=== PATIENT | female | born 1965 | race African-American/Black ===

== ENCOUNTER 2020-08-05 08:38 | Emergency (ER) | payer OTHER, SELFPAY ==
--- NOTE | ~2020-08-05 | XR_ITS ---
EXAMINATION: XR chest 2V EXAM DATE: 08/05/2020 09:44 INDICATION: Syncope. Anemia, weakness. TECHNIQUE: Frontal and lateral projections of the chest obtained and reviewed. There is no prior uzma dy for comparison. FINDINGS: The lungs are clear. There are no pleural effusions. The cardiomediastinal silhouette is within normal limits. There is no pneumothorax suspected. The bones and soft tissues are unremarkab le. IMPRESSION: No acute cardiopulmonary findings. Reviewed, dictated and finalized at location B. N SPECIALIST
--- NOTE | 2020-08-05 08:45 | ECG_ITS ---
Measurements Intervals [place] Rate: 74 P: 44 TN: 159 QRS: 36 QRSD: 84 T: -6 QT: 374 QTc: 415 Interpretive Statements SINUS RHYTHM EARLY PRECORDIAL R/S TRANSITION BORDERLINE ST-T WAVE ABNORMALITY- ANT/INF LEADS BORDERLINE ECG Electronically Signed On 08-05-2020 9:19:00 EMBROIDERY MACHINE OPERATOR by Jim Claudio D.O.
[2020-08-05 09:17] VITALS: BP 173/93; PULSE 84; RESP 16; TEMP 36.3; O2SAT 98
--- NOTE | 2020-08-05 09:35 | ED.SYNCOPE ---
HPI - Syncope General Chief Complaint: Syncope Stated Complaint: fainted yesterday Time Seen by Provider: 08/05/20 09:12 Source: patient Mode of arrival: ambulatory Limitations: no limitations History of Present Illness HPI narrative: This is a 55-year-old female that presents to the emergency department for syncopal episode yesterday. Reports she was at the grocery store yesterday. She had been feeling kind of nauseous that morning. Reports while she was walking around she started to feel very lightheaded. Reports next thing she knew she was passed out on the floor. She was not evaluated yesterday. Reports she was urged by family members to be evaluated today. Denies any current symptoms. Does report she has history of anemia and has had similar episodes in the past when her blood counts are low. Denies fever, chest pain, palpitations, or shortness of breath. Review of Systems Review of Systems: Narrative: CONSTITUTIONAL: Denies fever CARDIOVASCULAR: Denies chest pain, palpitations RESPIRATORY: Denies cough or dyspnea. GASTROINTESTINAL: Denies abdominal pain, nausea, vomiting GENITOURINARY: Denies dysuria All systems reviewed & are unremarkable except as noted in HPI and below PMFSH Past Medical History Medical History (Updated 08/05/20 @ 11:38 by Brandee Giang PA-C) History of anemia Surgical History Surgical History (Updated 08/05/20 @ 09:37 by Brandee Giang PA-C) History of tubal ligation Exam Narrative: Exam Narrative: GENERAL: Well-appearing, well-nourished, and in no acute distress. HEAD: Normocephalic, atraumatic. EYES: EOMI. ENT: Mucous membranes moist. Oropharynx without tonsillar hypertrophy exudate or other lesions. NECK: Supple. No adenopathy or masses. No carotid bruits or JVD CHEST: Clear to auscultation. No respiratory distress. No wheezes rales or rhonchi HEART: Regular rate and rhythm. No murmur heard. Normal peripheral pulses. EXTREMITIES: Normal range of motion. No edema. SKIN: Warm, dry, no rash. NEURO: No focal deficits. Alert and oriented x3. PSYCH: Normal mood and affect Course Vital Signs Vital signs: Vital Signs Temperature 97.3 F L 08/05/20 09:17 Pulse Rate 84 08/05/20 09:17 Respiratory Rate 16 08/05/20 09:17 Blood Pressure 173/93 H 08/05/20 09:17 Pulse Oximetry 98 08/05/20 09:17 Temperature 97.3 F L 08/05/20 09:17 Pulse Rate 70 08/05/20 10:46 Respiratory Rate 18 08/05/20 10:46 Blood Pressure 163/90 H 08/05/20 10:46 Pulse Oximetry 99 08/05/20 10:46 MDM - Syncope MDM Narrative Medical decision making narrative: Patient presents the emergency department for syncopal episode yesterday. Had prodromal lightheadedness. Denied any chest pain or palpitations. She is not orthostatic. CBC and metabolic panel without concerning findings. EKG without concerning changes. Baseline troponin is negative. Chest x-ray without acute findings. Gonzales syncope score makes her very low risk. Patient is stable and felt appropriate for the outpatient evaluation. She was given warnings to return to the ER Lab Data Attestation: I reviewed the patient's lab results. Result diagrams: 08/05/20 09:35 08/05/20 09:35 Labs: Lab Results 08/05/20 08/05/20 08/05/20 Range/Units 09:35 09:35 09:35 WBC 6.9 (4.5-10.0) K/mm3 RBC 4.18 L (4.2-5.4) M/mm3 Hgb 12.9 (12.0-15.0) g/dL Hct 38.4 (37.0-47.0) % MCV 91.9 (80-100) fl MCH 30.9 (26-34) pg MCHC 33.6 (32-36) g/dl RDW 13.2 (11.5-14.5) % Plt Count 370 (150-375) k/mm3 MPV 9.5 (7.4-10.4) fl Immature Gran % (Auto) 0.3 (0-0.5) % Neut % (Auto) 49.8 (45.5-73.1) % Lymph % (Auto) 42.2 (18.3-44.2) % Knott % (Auto) 5.8 (2.6-8.5) % Eos % (Auto) 1.6 (0-4.4) % Baso % (Auto) 0.3 (0.2-1.2) % Lymph # (Auto) 2.89 (0.9-3.2) K/mm3 Knott # (Auto) 0.4 (0.1-0.6) K/mm3 Eos # (Auto) 0.1 (0-0.3) K/mm3 Baso # (Auto
[2020-08-05 09:45] LABS: Basophils Percent Auto 0.3 % (0.2-1.2); Eosinophils Absolute Auto 0.1 K/mm3 (0-0.3); Eosinophils Percent Auto 1.6 % (0-4.4); Hematocrit 38.4 % (37.0-47.0); Hemoglobin 12.9 g/dL (12.0-15.0); Immature Granulocyte Absolute 0.02 K/mm3 (0.00-0.031); Immature Granulocyte Percent A 0.3 % (0-0.5); Lymphocytes Absolute Auto 2.89 K/mm3 (0.9-3.2); Lymphocytes Percent Auto 42.2 % (18.3-44.2); Mean Corpuscular HGB Conc 33.6 g/dl (32-36); Mean Corpuscular Hemoglobin 30.9 pg (26-34); Mean Corpuscular Volume 91.9 fl (80-100); Mean Platelet Volume 9.5 fl (7.4-10.4); Monocytes Absolute Auto 0.4 K/mm3 (0.1-0.6); Monocytes Percent Auto 5.8 % (2.6-8.5); Neutrophils Absolute Auto 3.4 K/mm3 (1.3-6.7); Neutrophils Percent Auto 49.8 % (45.5-73.1); Platelet Count Result 370 k/mm3 (150-375); Red Blood Count 4.18 M/mm3 (4.2-5.4); Red Cell Distribution Width 13.2 % (11.5-14.5); White Blood Count 6.9 K/mm3 (4.5-10.0)
[2020-08-05 09:58] LABS: Anion Gap 8 mmol/L (8-16); Blood Urea Nitrogen 12 mg/dL (7-17); Calcium 9.7 mg/dL (8.4-10.2); Carbon Dioxide 27 mmol/L (22-30); Chloride 105 mmol/L (98-107); Estimated CRCL calculation 52 ml/min; Estimated Glomerular Filt Rate > 60; Glucose 104 mg/dL (65-105); Potassium 4.2 mmol/L (3.4-5.0); Sodium 140 mmol/L (137-145)
[2020-08-05 10:24] LABS: Troponin I < 0.012 ng/mL (0.000-0.034)
[2020-08-05 10:31] VITALS: BP 152/82; BP 153/93; PULSE 75; PULSE 76
[2020-08-05 10:33] VITALS: BP 165/90; PULSE 76
[2020-08-05 10:46] VITALS: BP 163/90; PULSE 70; RESP 18; O2SAT 99
[2020-08-05 11:45] VITALS: BP 132/76; PULSE 78; RESP 18; O2SAT 99
== END 2020-08-05 11:47 | disposition home or self-care (01) ==
PROVIDERS: Physician Assistant; Emergency Provider Emergency Medicine
DX: R55 Syncope and collapse (principal); Z86.2 Personal history of diseases of the blood and blood-forming organs and certain disorders involving the immune mechanism; R94.31 Abnormal electrocardiogram [ECG] [EKG]
CPT/HCPCS: 36415; 71046; 80048; 81025; 84484; 85025; 93005; 99284

== ENCOUNTER 2021-03-30 11:41 | Emergency (ER) | payer OTHER, SELFPAY ==
[2021-03-30 11:55] VITALS: BP 149/78; PULSE 74; RESP 20; TEMP 36.7; O2SAT 100
--- NOTE | 2021-03-30 12:30 | PC.NURSE ---
PT REPORTED TO STAFF THAT SHE NEEDED TO LEAVE TO TAKE A CLIENT TO AN APPOINTMENT.
[2021-03-30 15:09] VITALS: BP 164/83; PULSE 75; RESP 20
== END 2021-03-30 16:22 | disposition home or self-care (01) ==
PROVIDERS: Emergency Provider Registered Nurse
DX: Z53.21 Procedure and treatment not carried out due to patient leaving prior to being seen by health care provider (principal)
CPT/HCPCS: 99199

== ENCOUNTER 2022-11-15 09:04 | Emergency (ER) | payer SELFPAY ==
[2022-11-15 09:15] VITALS: BP 156/89; PULSE 96; RESP 16; TEMP 36.6; O2SAT 99
--- NOTE | 2022-11-15 09:16 | ED.ARRPALP ---
HPI - Arrhythmia/Palpitations General Stated Complaint: Heart Rate Problem Time Seen by Provider: 11/15/22 09:16 Source: patient and RN notes reviewed History of Present Illness HPI narrative: Patient is a 57-year-old female who presents to urgent care with complaints of possibility of palpitations. Patient states that her watch his told her a couple different times, in the last 2 weeks, that she may be having an arrhythmia. Patient states she may have felt some abnormal heart rate earlier today whenever it told her her heart rate was 137. However, patient has no cardiac history or medical history. The patient does not drink caffeine nor involve herself and strenuous activity. 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 Patient denies any chest discomfort, shortness of breath, nausea or vomiting. Patient currently has no medical or acute complaints. No acute distress noted. Patient aware of the plan of care. Some parts of this dictation were generated by voice recognition software and may contain typographical and/or grammatical inaccuracies. Related Data Home Medications Medication Instructions Recorded Confirmed No Home Medications 11/15/22 11/15/22 Allergies Allergy/AdvReac Type Severity Reaction Status Date / Time No Known Allergies Allergy Verified 11/15/22 09:41 Review of Systems Review of Systems: CONSTITUTIONAL: Denies fever, chills, or sweats. EYES: Denies visual changes, redness, or discharge. ENT: Denies rhinorrhea, congestion, sore throat, or otalgia. CARDIOVASCULAR: Denies chest pain; reports inability palpitations RESPIRATORY: Denies cough or dyspnea. GASTROINTESTINAL: Denies abdominal pain, nausea, vomiting, or diarrhea. GENITOURINARY: Denies dysuria or hematuria. SKIN: Denies rash or itching. MUSCULOSKELETAL: Denies back pain, joint pain, or myalgia. NEUROLOGIC: Denies headache, numbness, or weakness. All other systems reviewed are negative, except as documented in HPI. [facility] Past Medical History Medical History History of anemia Surgical History Surgical History History of tubal ligation Social History Social History (Updated 04/04/21 @ 22:26 by Nalini L. Rafael, METAL CASTING TRADES WORKER) Smoking status: Never smoker Alcohol intake: never Substance use: never Living arrangements: with family Gender identity (if verbalized by the patient): Female Comments At the time of my signature, I reviewed and agree with the nursing past medical, surgical, social, and family history. There is no relevant family history pertinent to the patient complaint. Exam Narrative: GENERAL: This is a well-nourished, well-developed patient, in no apparent distress. HEAD: normocephalic, atraumatic. EYES: PERRL. Sclera clear/white. Vision is grossly intact. EARS: External ears normal NOSE: External nose normal with no obvious nasal discharge, nares without redness, no rhinorrhea. THROAT: Mucous membranes moist NECK: Neck supple CARDIOVASCULAR: Regular rate and rhythm without murmurs-auscultated for at least 1 full minute RESPIRATORY: Clear to auscultation. Breath sounds equal bilaterally. No wheezes, rales, or rhonchi. SKIN: warm, intact with no suspicious lesions or rash, good texture and turgor. NEURO: awake, alert, and oriented to person, place and time. There were no obvious focal neurologic abnormalities. EXTREMITIES: No clubbing, cyanosis, or edema. Course Course Level of Care: Express Care Visit Vital Signs Vital signs: Vital Signs Temperature 98 F 11/15/22 09:15 Pulse Rate 96 11/15/22 09:15 Respiratory Rate 16 11/15/22 09:15 Blood Pressure 156/89 H 11/15/22 09:15 Pulse Oximetry 99 11/15/22 09:15 Oxygen Delivery Room Air 11/15/22 09:15 Temperature 98 F 11/15/22 09:15 Pulse Rate 96 11/15/22 09:15 Respiratory Rate 16
--- NOTE | 2022-11-15 09:17 | ECG_ITS ---
Measurements Intervals [place] Rate: 88 P: 39 KS: 153 QRS: 39 QRSD: 79 T: 48 QT: 360 QTc: 436 Interpretive Statements SINUS RHYTHM NONSPECIFIC T-WAVE ABNORMALITY ABNORMAL ECG COMPARED TO ECG 08/05/2020 09:17:44 T-WAVE ABNORMALITY NOW PRESENT Electronically Signed On 11-15-2022 14:41:44 CDT by Kristopher Mcdaniel M.D.
== END 2022-11-15 09:55 | disposition home or self-care (01) ==
PROVIDERS: Emergency Provider Nurse Practitioner Family
DX: Z71.1 Person with feared health complaint in whom no diagnosis is made (principal); R94.31 Abnormal electrocardiogram [ECG] [EKG]
CPT/HCPCS: 93005; 99213; G0463

== ENCOUNTER 2024-08-31 09:20 | Emergency (ER) | payer BC, SELFPAY ==
--- OUTSIDE RECORDS SUMMARY | 2024-08-31 09:42 | XMS_ITS | Clinical Summary ---
Author Organization [facility] Building [address] [place] [address] Care Team Providers Care Harness Preparer Name Role Phone Abel Lewis NP Primary Care Provider [phone] Allergies Active Allergy Reactions Criticality Noted Date Comments Dairy - All Forms And Ingredients Other (See comments) Low 11/14/2023 Phlem build up Wheat Flour Swelling Medium 11/14/2023 Medications fexofenadine (FRANC) 180 mg tablet Take 1 tablet (180 mg total) by mouth daily Active albuterol HFA (PROVENTIL HFA,VENTOLIN HFA,PROAIR HFA) 90 mcg/actuation inhalerIndication s:Mild intermittent asthma without complication Inhale 2 puffs every 6 (six) hours as needed for wheezing 3 each 4 4 10/04/[address] (PROTONIX) 40 mg EC tabletIndications :Gastroesophageal reflux disease, unspecified whether esophagitis present Take 1 tablet (40 mg total) by mouth daily 90 tablet 4 01/22/20 25 Active Active Problems Problem Noted Date Diagnosed Date Sleep disturbances 12/14/2023 Encounter for screening for malignant neoplasm o f colon 10/06/2023 Mild intermittent asthma without complication Assessment & Plan (04/05/2024 9:15 AM CDT): Chronic, stable, well controlled No longer using her Advair or taking Singulair Doing well, feeling great Continue Albuterol as needed Assessment & Plan (10/04/2023 10:45 AM CDT): Dx after age 40; uses albuterol as needed; getting worse Start Advair BID, Singulair 10 mg nightly, Albuterol PRN and Medrol dose muna as prescribed Gastroesophageal reflux disease 10/04/2023 Assessment & Plan (04/05/2024 9:15 AM CDT): Chronic, stable, well controlled Continue Protonix 40 mg daily Assessment & Plan (10/04/2023 10:46 AM CDT): Not currently well controlled Some relief with Pepcid Start Protonix 40 mg daily Immunizations Name Administration Dates Next Due Influenza, Quadrivalent, Spl it, Preservative Free, Intramuscular 08/18/2020 Influenza, Unspecified 04/02/2024(Deferr ed: Patient Refused),05/25/2023(Deferred: Patient Refused),04/23/2023(Deferred: Patient Refused),04/23/2022(Deferred: Patient Refused) Pneumococcal Conjugate Pcv20 04/05/2024 Tdap 03/09/2020 Medical History Medical History Date Comments Allergic Asthma GERD (gastroesophageal reflux disease) Stress Family History Medical History Relation Name Comments Hypertension Brother Colon cancer Father Hypertension Father Dementia Mother Hypertension Mother Kidney disease Mother Relation Name Status Comments Brother Father Mother Alive Social History Tobacco Use Types Packs/Day Years Used Date Smoking Tobacco: Never Smokeless Tobacco: Never Tobacco Cessation:Counseling Given: Not Answered [facility] [employer] Answer Date Recorded In the past 12 months has e [employer], [employer], or water [employer] threatened to shut off services in your home? No 04/05/2024 Humiliation, Afraid, Rape, and Kick questionnair e Answer Date Recorded Within the last year, have y ou been afraid of your partner or ex-partner? No 04/05/2024 Within the last year, have y ou been humiliated or emotionally abused in other ways by your partner or ex-partner? No Within the last year, have y ou been kicked, hit, slapped, or otherwise physically hurt by your partner or ex-partner? No 04/05/2024 Within the last year, have y ou been raped or forced to have any kind of sexual activity by your partner or ex-partner? No 04/05/2024 Social Connection and Isolat ion Panel [NHANES] Answer Date Recorded In a typical week, how many times do you talk on the phone with family, friends, or neighbors? More than three times a week 04/05/2024 How often do you get togethe r with friends or relatives? More than three times a week 04/05/2024 How often do you attend [facility] or temple services? More than 4 times per year 04/05/2024 Do you belong to any clubs o r organizations such as roman catholic groups, unions, fraternal or athletic groups, or school groups? No 04/05/2024 How often do you attend meet ings of the clubs or organizations you belong to? Never 04/05/2024 Are you , , di vorced, , never , or living with a partner? 04/05/2024 AUDIT-C Answer Date Recorded Q1: How often do you have a drink containing alc ohol? Monthly or less 04/05/2024 Q2: How many drinks containi ng alcohol do you have on a typical day when you are drinking? 1 or 2 04/05/2024 Q3: How often do you have si x or more drinks on one occasion? Never 04/05/2024 Overall Financial Resource Strain (CARDIA) Answe r Date Recorded How hard is it for you to pa y for the very basics like food, housing, medical care, and heating? Not hard at all 04/05/2024 PHQ-2 Answer Date Recorded PHQ-2 Total Score (If total score is 3 or more points, staff should administer the PHQ-9) 0 04/05/2024 [facility] - Occupational Stress Questionnaire Answer Date Recorded Do you feel stress - tense, restless, nervous, or anxious, or unable to sleep at night because your mind is troubled all the time - these days? Only a little 04/05/2024 Exercise Vital Sign Answer Date Recorde d On average, how many days pe r week do you engage in moderate to strenuous exercise (like a brisk walk)? 0 days 04/05/2024 On average, how many minutes do you engage in exercise at this level? 0 min 04/05/2024 Hunger Vital Sign Answer Date Recorded Within the past 12 months, y ou worried that your food would run out before you got the money to buy more. Never true 04/05/20 24 Within the past 12 months, t he food you bought just didn't last and you didn't have money to get more. Never true 04/05/2024 PRAPARE - Transportation Answer Date Re corded In the past 12 months, has l ack of transportation kept you from medical appointments or from getting medications? No 03/24 In the past 12 months, has l ack of transportation kept you from meetings, work, or from getting things needed for daily living? No 04/05/2024 Housing Stability Vital Sign Answer Agustín e Recorded In the last 12 months, was t here a time when you were not able to pay the mortgage or rent on time? No 04/05/2024 In the past 12 months, how m any times have you moved where you were living? 0 04/05/2024 At any time in the past 12 m [facility], were you homeless or living in a [facility] (including now)? No 04/05/2024 Personal Safety Answer Date Recorded Have you ever been in or are you currently in a harmful physical or emotional relationship or is someone making you feel afraid or unsafe? Denies 10/23/2023 Comments No Sex and Gender Information Value Date Recorded Sex Assigned at Not on file Legal Sex Female 2:58 PM CDT Gender Identity Not on file Sexual Orientation Not on file Obstetrics History Para Term AB IAB SAB Ectopic Multiple Livin g Live Births 3 2 2 Date Outcome GA Total Labor Labor/2nd/3rd Weight Sex Type Anes PTL Anat A1 A5 Name Clin Term Term Last Filed Vital Signs Vital Sign Reading Time Taken Comments Blood Pressure 132/78 04/05/2024 8:38 AM CDT Pulse 88 04/05/2024 8:38 AM CDT Temperature 36.3 C (97.4 F) 04/05/2024 8:38 AM CDT Respiratory Rate 16 04/05/2024 8:38 AM CDT Oxygen Saturation 98% 04/05/2024 8:38 AM CDT Inhaled Oxygen Concentration - - Weight 85.5 kg (188 lb 6.4 oz) 04/05/2024 8:38 A M CDT Height 154.9 cm (5' 1 ) 04/05/2024 8:38 AM CDT Body Mass Index 35.6 04/05/2024 8:38 AM CDT Plan of Treatment Health Maintenance Due Date Last Done Comments Cervical Cancer Screening 1965 Hepatitis B Screening 1982 Breast Cancer Screening-Mammogram 12/20/2024 024 Depression Screening 04/05/2025 04/05/2024, 02/02/2024, 10/04/2023 Regular Well Visit/Exam 18-64 04/05/2025 04/05/2024 DTaP/Tdap/Td Vaccine (2 - Td or Tdap) 03/09/2030 03/09/2020 Colon Cancer Screening-Colonoscopy 10/22/20332023 Hepatitis C Screening Completed 11/07/2023 Pneumococcal vaccine <65 Completed 04/05/2024 Covid-19 Vaccine Completed 05/13/2024, 01/2022, 12/01/2021, Additional history exists Influenza Vaccine Completed 05/13/2024, 08/18/2020 Zoster Vaccine Completed 07/23/2024, 05/24/2024 Procedures Procedure Name Priority Date/Time Associated Diagnosis Comments SCREENING MAMMOGRAM BILATERAL W ERNST Schedule Routine, Read Routine (OP Routine) 12/21/2023 9:32 AM CDT Screening mammogram for breast cancer HEPATITIS C ANTIBODY Routine 11/07/2023 8:37 AM CDT Need for hepatitis C screening test COLONOSCOPY 10/23/2023 12:15 PM CDT from Last 3 Months or Most Recently Relevant to Health Maintenance Results * SCREENING MAMMOGRAM BILATERAL W ERNST (12/21/2023 9:32 AM CDT) Anatomical Region Laterality Modality Breast Bilateral Mammography 12/25/2023 10:5 8 AM CDT Impressions 12/25/2023 10:58 AM CDT There is no mammographic evidence of malignancy. A 1 year screening mammogram is recommended. BI-RADS: 1 - Negative. The patient has been or will be contacted. The patient will be entered into a reminder system with a target due date of 1 year for her next mammogram. Electronically signed by: Aminah Mccormick M.D. Narrative 12/25/2023 10:58 AM CDT EXAMINATION: SCREENING MAMMOGRAM BILATERAL W ERNST ORDERING HEALTHCARE PROVIDER: ABEL LEWIS HISTORY: Routine screening mammography. COMPARISON: No comparison studies are available. TECHNIQUE: CC and MLO views of the bilateral breasts were obtained with digital technique using breast tomosynthesis with C view. Computer aided detection was utilized. FINDINGS: DENSITY: The tissue of the bilateral breasts is almost entirely fatty. BREASTS: There are no suspicious masses, suspicious calcifications, or other suspicious findings in either breast. There has been no suspicious interval change. us Abel Lewis NP IMG MAMMO PROCEDURES Final Resul t * Hepatitis C antibody Blood (11/07/2023 8:37 AM CDT) Hep C Ab Nonreactive Nonreactive Comment: Interpretive Data Nonreactive: Antibodies to HCV not detected. Does NOT exclude the possibility of recent exposure to HCV. Equivocal: Equivocal for HCV antibodies. Supplemental molecular testing will be automatically performed to determine infection status in accordance with current CDC screening recommendations. Reactive: Positive for HCV antibodies. This may represent current or past HCV infection. Supplemental molecular testing will be automatically performed to determine current infection status in accordance with current CDC screening recommendations. Interpretive data was last revised on 2019. Testing performed by: [facility], [address] [place] [address]., [id number] Blood 11/07/2023 8:37 AM CDT 11/07/2023 1:43 PM CDT us Abel Lewis NP LAB MICROBIOLOGY - GENERAL ORDER POLLO Final Result [facility] [address] [facility] Department [place] [address] * Colonoscopy (10/23/2023 12:15 PM CDT) Anatomical Region Laterality Modality Other Narrative Procedure Note Fabrice Strauss MD - 10/23/2023 12:15 PM CDT [facility] Patient Name: Monica Warren Procedure Date: 10/23/2023 12:15 PM Date of : 1965 Admit Type: Outpatient Age: 58 Gender: Female Note Status: Finalized Attending MD: Fabrice Strauss M.D. Procedure Date: 10/23/2023 Procedure: Colonoscopy Indications: Screening in patient at increased risk: Colorectal cancer in father before age 60 Providers: Fabrice Strauss M.D., Juju Han CRNA (Anesthesia Staff), Cleo Shell, HALLE, Rose Marie Lopez RN Referring MD: Elisha Leung Medicines: Monitored Anesthesia Care Complications: No immediate complications. Estimated Blood Loss: Estimated blood loss: none. Procedure: Pre-Anesthesia Assessment: - Airway Examination: normal oropharyngeal airwayand neck mobility. - Respiratory Examination: clear to auscultation. - ASA Grade Assessment: II - A patient with mild systemic disease. - After reviewing the risks and benefits, thepatient was deemed in satisfactory condition to undergo the procedure. - The risks and benefits of the procedure and the sedation options and risks were discussed with the patient. All questions were answered and informed consent was obtained. After I obtained informed consent, the scope was passed under direct vision. Throughout theprocedure, the patient's blood pressure, pulse, and oxygen saturations were monitored continuously. The scopewas passed under direct vision. The Colonoscope was introduced through the anus and advanced to the the cecum, identified by the appendiceal orifice, ileocecal valve and palpation. The colonoscopy was performed with ease. The patient tolerated the procedure well. The quality of the bowelpreparation was good. The quality of the bowel preparation was evaluated using the BBPS ([place] Bowel Preparation Scale) with scores of: Right Colon = 3, Transverse Colon = 3 and Left Colon = 3 (entire mucosa seenwell with no residual staining, small fragments of stoolor opaque liquid). The total BBPS score equals 9. The bowel preparation used was Clenpiq via split dose instruction. Bowel prep was administered using asplit dose. Findings: The perianal and digital rectal examinations were normal. A 3 mm polyp was found in the cecum. The polyp was sessile. The polyp was removed with a jumbo cold forceps. Resection and retrieval were complete. Estimated blood loss: none. The retroflexed view of the distal rectum and anal verge was normaland showed no anal or rectal abnormalities. Impression: - One 3 mm polyp in the cecum, removed with a jumbo cold forceps. Resected and retrieved. - The distal rectum and anal verge are normal on retroflexion view. Recommendation: - Discharge patient to home (ambulatory). - Await pathology results. - Repeat colonoscopy in 5 years for surveillance. Procedure Code(s): --- Professional --- 49610, Colonoscopy, flexible; with biopsy, singleor multiple Diagnosis Code(s): --- Professional --- Z80.0, Family history of malignant neoplasm of digestive organs D12.0, Benign neoplasm of cecum CPT copyright 2020 [employer]. All rights reserved. The codes documented in this report are preliminary and upon academic program specialist reviewmay be revised to meet current compliance requirements. Electronically signed by Fabrice Strauss MD Fabrice Strauss M.D. 10/23/2023 12:55:01 PM Number of Addenda: 0 Note Initiated On: 10/23/2023 12:15 PM Fabrice Strauss MD ENDOSCOPY PROCEDURES Final Resul t from Last 3 Months or Most Recently Relevant to Health Maintenance Insurance [facility] Care Teams Harness Preparer Relationship Specialty Start Date End Date Abel Lewis NP PCP - General Family Medicine 10/04/23
--- OUTSIDE RECORDS SUMMARY | 2024-08-31 09:43 | XMS_ITS | Referral Summary ---
Author Organization [facility] Address [address] [place] [id number] Care Team Providers Care Transition Lead Name Role Phone Pcp, No Primary Care Provider Unavailabl e Allergies No known active allergies Medications Medication Sig Dispensed Refills Start Date End Date Status ibuprofen (MOTRIN) 600 MG tablet Take 1 tablet by mouth every 8 hours as needed for Pain. 30 tablet 0 06/07/2012 Active amoxicillin-clavulan ate (AUGMENTIN) 875-125 MG per tablet Take 1 tablet by mouth every 12 hours. 20 tablet 07/20/2019 Active benzonatate (TESSALON PERLES) 200 MG capsule Take 1 capsule by mouth 3 times daily as needed for Cough. 30 capsule 07/20/2019 Active Active Problems No known active problems Immunizations Name Administration Dates Next Due PPD 09/14/2018 Social History Tobacco Use Types Packs/Day Years Used Date Smoking Tobacco: Never Alcohol Use Standard Drinks/Week Comments No 0 (1 standard drink = 0.6 oz pur e alcohol) Interpersonal Safety Answer Date Record ed Social Determinants: Intimate Partner Violence P ast Fear Not on file 11/14/2020 Social Determinants: Intimate Partner Violence C urrent Fear Not on file 11/14/2020 Inadequate Housing Answer Date Recorded Social Determinants: Housing (Overall Score Help er) 0 03/17/2019 Sex and Gender Information Value Date Recorded Sex Assigned at Not on file Gender Identity Not on file Sexual Orientation Not on file Last Filed Vital Signs Vital Sign Reading Time Taken Comments Blood Pressure 144/64 07/20/2019 10:17 AM [employer] Pulse 100 07/20/2019 10:17 AM [employer] Temperature 36.6 C (97.9 F) 07/20/2019 10:17 AM [employer] Respiratory Rate 16 07/20/2019 10:17 AM [employer] Oxygen Saturation 97% 07/20/2019 10:17 AM [employer] Inhaled Oxygen Concentration - - Weight 77.1 kg (170 lb) 07/20/2019 10:17 AM [employer] Height 157.5 cm (5' 2 ) 07/20/2019 10:17 AM [employer] Body Mass Index 31.09 07/20/2019 10:17 AM [employer] Plan of Treatment Not on file Care Teams Transition Lead Relationship Specialty Start Date End Date Pcp, No PCP - General 06/07/12
--- OUTSIDE RECORDS SUMMARY | 2024-08-31 09:43 | XMS_ITS | Referral Summary ---
Author Organization [facility] [address] Address [address] [place] [address] Care Team Providers Care Retail Assistant Store Manager Name Role Phone Abel Lewis EXTERIOR WORK HELPER Primary Care Provider [phone] Allergies Active Allergy Reactions Criticality Noted Date [...] Refused) Pneumococcal Conjugate Pcv20 04/05/2024 Tdap 03/09/2020 Social History Tobacco Use Types Packs/Day Years Used Date Smoking Tobacco: Never Smokeless Tobacco: Never Tobacco Cessation:Counseling Given: Not Answered [facility] [employer] Answer Date Recorded In the past 12 months has [facility] [employer], [employer], or water [employer] threatened to shut off services in your [...] week 04/05/2024 How often do you attend [facility] or islam services? More than 4 times per year 04/05/2024 Do you belong to any clubs o r organizations such as hinduism groups, unions, fraternal or athletic groups, or [...] staff should administer the PHQ-9) 0 04/05/2024 [facility] - Occupational Stress Questionnaire Answer Date Recorded [...] No 04/05/2024 Housing Stability Vital Sign Answer Agsutín e Recorded In the last 12 months, was t here a time when you were not able to pay the mortgage or rent on time? No 04/05/2024 In the past 12 months, how m any times have you moved where you were living? 0 04/05/2024 At any time in the past 12 m [facility], were you homeless or living in a halfway (including now)? No 04/05/2024 Personal Safety Answer [...] 04/05/2024 8:38 AM CDT Plan of Treatment Not on file Procedures Procedure Name Priority Date/Time Associated Diagnosis [...] on 2019. Testing performed by: [facility], [address] [place] [address], [place]., [address] Blood 11/07/2023 8:37 AM CDT 11/07/2023 1:43 PM CDT us Abel Lewis NP LAB MICROBIOLOGY - GENERAL ORDER POLLO Final Result GETACHEW QUISPE QUENEMO) 1 [facility] [place] [address] * Colonoscopy (10/23/2023 12:15 PM CDT) Anatomical Region Laterality Modality Other Narrative Procedure Note Fabrice Strauss MD - 10/23/2023 12:15 PM CDT [facility] Patient Name: Monica Warren Procedure Date: 10/23/2023 12:15 PM Date of : 1965 Admit Type: Outpatient Age: 58 Gender: Female Note Status: Finalized Attending MD: Fabrice Strauss M.D. Procedure Date: 10/23/2023 Procedure: Colonoscopy Indications: Screening in patient at increased risk: Colorectal cancer in father before age 60 Providers: Fabrice Strauss M.D., Juju Han CRNA (Anesthesia Staff), Cleo Shell RN, Rose Marie Lopez RN Referring MD: Elisha [...] bowel preparation was evaluated using the BBPS (Ruby Bowel Preparation Scale) with scores of: Right [...] for surveillance. 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 All rights reserved. The codes documented in this report are preliminary and upon computer systems security administrator reviewmay be revised to meet current compliance requirements. Electronically signed by Fabrice Strauss MD Fabrice Strauss M.D. 10/23/2023 12:55:01 PM Number of Addenda: 0 Note Initiated On: 10/23/2023 12:15 PM Fabrice Strauss MD ENDOSCOPY PROCEDURES Final Resul t from Last 3 Months or Most Recently Relevant to Health Maintenance Insurance [facility] Care Teams Retail Assistant Store Manager Relationship Specialty Start Date End Date Abel Lewis NP PCP - General Family Medicine 10/04/23
--- OUTSIDE RECORDS SUMMARY | 2024-08-31 09:43 | XMS_ITS | Clinical Summary ---
Author Organization [facility] Address [address] [place] [id number] Care Team Providers Care Solution Coordinator Name Role Phone Pcp, No Primary Care [...] Sexual Orientation Not on file Obstetrics History Last Filed Vital Signs Vital Sign Reading Time Taken Comments Blood Pressure 144/64 07/20/2019 10:17 AM [employer] Pulse 100 07/20/2019 10:17 AM [employer] Temperature 36.6 C (97.9 F) 07/20/2019 10:17 AM [employer] Respiratory Rate 16 07/20/2019 10:17 AM [employer] Oxygen Saturation 97% 07/20/2019 10:17 AM [employer] Inhaled Oxygen Concentration - - Weight 77.1 kg (170 lb) 07/20/2019 10:17 AM [employer] Height 157.5 cm (5' 2 ) 07/20/2019 10:17 AM [employer] Body Mass Index 31.09 07/20/2019 10:17 AM [employer] Plan of Treatment Health Maintenance Due Date Last Done Comments Depression Screening 1976 DTaP/Tdap/Td Vaccine (1 - Tdap) 1983 Breast Cancer Screening 2004 CT Colonography 2009 Cologuard 2009 Colonoscopy 2009 Colorectal Cancer Screen 2009 Fecal Occult Blood 2009 Sigmoidoscopy 2009 Pneumococcal Vaccine 50+ (1 of 1 - PCV) 2014 Shingles Vaccine (1 of 2) 2014 COVID-19 Vaccine (1 - 2023-2 5 season) 2024 Influenza Vaccine (#1) 2024 Respiratory Syncytial Virus (RSV) Vaccine 60+ (1 - 1-dose 75+ series) 2039 HPV Vaccine Aged Out No longer eligi ble based on patient's age to complete this topic Hepatitis A Vaccine Aged Out No longe r eligible based on patient's age to complete this topic Hepatitis B Vaccine (For Physician/APC Discussion) Aged Out No longer elig ible based on patient's age to complete this topic Meningococcal Serogroup B Vaccine Aged Out No longer eligible based on patient's age to complete this topic Meningococcal Vaccine Aged Out No ro[facility] felisa eligible based on patient's age to complete this topic Pneumococcal Vaccine 0-49 Aged Out No longer eligible based on patient's age to complete this topic Care Teams Solution Coordinator Relationship Specialty Start Date End Date Pcp, No PCP - General 06/07/12
[2024-08-31 10:06] VITALS: BP 148/74; PULSE 80; RESP 16; TEMP 37; O2SAT 98
[2024-08-31 10:42] LABS: EDCOVIDSCREEN Negative (Negative); EDINFLUASCREEN Positive (Negative); EDINFLUBSCREEN Negative (Negative)
--- NOTE | 2024-08-31 11:06 | ED_ITS ---
HPI - General Adult General Chief complaint: Upper Respiratory Infection Stated complaint: sore throat, swollen eye Source: patient Mode of arrival: ambulatory Limitations: no limitations History of Present Illness HPI narrative: Patient presents for evaluation of sick symptoms for last 4 days. Symptoms include cough shortness of breath, chills and sore throat. No fever, nausea, vomiting, diarrhea. One of her family members has had similar symptoms and was evaluated here for those symptoms. She is not sure what test results showed. She reports swelling to right upper eyelid as of yesterday. Denies visual disturbance. She has been applying warm compresses. She wears glasses. She does not smoke. Related Data Allergies Allergy/AdvReac Type Severity Reaction Status Date / Time No Known Allergies Allergy Verified 08/31/24 10:02 Review of Systems Review of Systems: CONSTITUTIONAL: Reports chills. Denies fever or sweats. EYES: Denies visual changes, redness, or discharge. Reports swelling to right upper eyelid ENT: Reports sore throat. Denies rhinorrhea, congestion, or otalgia. CARDIOVASCULAR: Denies chest pain, palpitations, or edema. RESPIRATORY:Reports nonproductive cough and SOB GASTROINTESTINAL: Denies abdominal pain, nausea, vomiting, or diarrhea. GENITOURINARY: Denies dysuria or hematuria. SKIN: Denies rash or itching. MUSCULOSKELETAL: Denies back pain, joint pain, or myalgia. NEUROLOGIC: Denies headache, numbness, dizziness, or weakness. PSYCHIATRIC: Denies anxiety or depression. [facility] Past Medical History Medical History History of anemia Surgical History Surgical History History of tubal ligation Family History Family History Mother Family history non-contributory Social History Social History Smoking status: Never smoker Alcohol intake: never Substance use: never Living arrangements: with family Gender identity (if verbalized by the patient): Female Exam Narrative: GENERAL: Well-appearing, well-nourished, and in no acute distress. HEAD: Normocephalic, atraumatic. EYES: PERRLA and EOMI. There is swelling to right upper eyelid ENT: Nares clear, no rhinorrhea or epistaxis. Mucous membranes moist. Oropharynx without tonsillar hypertrophy exudate or other lesions. Bilateral TMs pearly pollard nonbulging NECK: Supple. No adenopathy or masses. No carotid bruits or JVD CHEST: Clear to auscultation. No respiratory distress. No wheezes rales or rhonchi HEART: Regular rate and rhythm. No murmur heard. Normal peripheral pulses. ABDOMEN: Soft, nontender, nondistended, normal active bowel sounds. EXTREMITIES: Normal range of motion. No edema. SKIN: Warm, dry, no rash. NEURO: No focal deficits. Alert and oriented x3. PSYCH: Normal mood and affect. Course Course Emergency Course: This is a 59-year-old female who presented for evaluation of sick symptoms. She is influenza positive. Discussed Tamiflu and through shared decision making opted to proceed with treatment despite fact that her symptom onset was greater than 72 hours ago. Will also treat her hordeolum with erythromycin as she is already using warm compresses with intermittent relief. Increase hydration. [id number] agents for symptom management. Follow up with primary provider. Go to the ER for worsening symptoms. Patient in agreement with plan of care. Level of Care: Express Care Visit Vital Signs Vital signs: Vital Signs Temperature 37.0 C 08/31/24 10:06 Pulse Rate 80 08/31/24 10:06 Respiratory Rate 16 08/31/24 10:06 Blood Pressure 148/74 H 08/31/24 10:06 Pulse Oximetry 98 08/31/24 10:06 Oxygen Delivery Room Air 08/31/24 10:06 Temperature 37.0 C 08/31/24 10:06 Pulse Rate 80 08/31/24 10:06 Respiratory Rate 16 08/31/24 10:06 Blood Pressure 148/74 H 08/31/24 10:06 Pulse Oximetry 98 08/31/24 10:06 Oxygen Delivery Room Air 08/31/24 10:06 Medical Decision Making Vital Signs Vital Signs: Vital Signs Temperature 37.0 C 08/31/24 10:06 Pulse Rate 80 08/31/24 10:06 Respiratory Rate 16 08/31/24 10:06 Blood Pressure 148/74 H 08/31/24 10:06 Pulse Oximetry 98 08/31/24 10:06 Oxygen Delivery Room Air 08/31/24 10:06 Temperature 37.0 C 08/31/24 10:06 Pulse Rate 80 08/31/24 10:06 Respiratory Rate 16 08/31/24 10:06 Blood Pressure 148/74 H 08/31/24 10:06 Pulse Oximetry 98 08/31/24 10:06 Oxygen Delivery Room Air 08/31/24 10:06 Lab Data Labs: Lab Results 08/31/24 Range/Units 10:00 POC Influenza A Ag Positive (Negative) POC Influenza B Ag Negative (Negative) POC SARS CoV-2 Ag Negative (Negative) Discharge Plan Discharge Clinical Impression: Influenza A, Hordeolum Patient Disposition: Home, Self-Care Condition: Stable Instructions: Antibiotic Form, Stye (ED), Influenza (DC) Patient Language: Romansh Prescriptions: New oseltamivir [Tamiflu] 75 mg capsule 75 mg PO Q12H 5 Days Qty: 10 0RF erythromycin 5 mg/gram (0.5 %) ointment 1 applic RIGHT EYE 6XD Qty: 3.5 0RF Follow-up/Referrals: Joshua,Anne Hinojosa [Primary Care Provider] - Time of Disposition: 11:05
== END 2024-08-31 11:10 | disposition home or self-care (01) ==
PROVIDERS: Emergency Provider Nurse Practitioner; PCP Nurse Practitioner
DX: J10.1 Influenza due to other identified influenza virus with other respiratory manifestations (principal); H00.011 Hordeolum externum right upper eyelid; Z20.822 Contact with and (suspected) exposure to COVID-19
CPT/HCPCS: 87426; 87804; 99213; G0463